=== PATIENT | female | born 1995 | race Two or more races ===

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

== ENCOUNTER 2017-02-24 22:58 | Emergency (ER) | payer OTHER ==
[2017-02-24 23:04] VITALS: BP 127/83
[2017-02-24] MEDS ORDERED: Albuterol/Ipratropium NEB.SOL* Albuterol 2.5 MG/Ipratropium 0.5 MG 3 ML INH ONE (23:36)
[2017-02-24] MEDS ORDERED: Azithromycin TAB* 250 MG PO ONE (23:36)
[2017-02-24] MEDS ORDERED: predniSONE TAB* 20 MG PO ONE (23:36)
[2017-02-25] MEDS ORDERED: Ibuprofen TAB* 600 MG PO ONE (00:06)
--- NOTE | 2017-02-25 06:46 | ED ---
Mireya Rust Kyle, scribed for Marcos Arellano MD on 02/25/17 at 0646 . Shortness of Breath - HPI Summary HPI Summary: This is a 21 yo female with a history of asthma presenting with complaints of shortness of breath that has been ongoing for the past 4 days but reports that the shortness of breath has been problematic for the duration of the summer. She reports that she has not been feeling well with complaints of a sore throat , cough, fevers, shortness of breath, generalized myalgias. She reports that she has been trying her inhaler that she has for her asthma but reports it doesn 't seem to be helping much. - History of Current Complaint Chief Complaint: EDAsthma Time Seen by Provider: 02/24/17 23:28 Hx Obtained From: Patient Onset/Duration: Gradual Onset Timing: Constant Current Severity: Mild Dyspnea At: Exertion Aggrevating Factors: Nothing Alleviating Factors: Nothing Associated Signs & Symptoms: Cough (Nonproductive) - Allergy/Home Medications Allergies/Adverse Reactions: Allergies Allergy/AdvReac Type Severity Reaction Status Date / Time No Known Allergies Allergy Verified 02/24/17 23:01 PMH/Surg Hx/FS Hx/Imm Hx Respiratory History: Reports: Hx Asthma - Cancer History Cancer Type, Location and Year: no cancer Infectious Disease History: No Infectious Disease History: Denies: Traveled Outside the [place] in Last 30 Days - Family History Known Family History: Positive: Hypertension - father Negative: Cardiac Disease, Diabetes - Social History Alcohol Use: None Substance Use Type: Reports: None Smoking Status (MU): Never Smoked Tobacco Review of Systems Positive: Fever, Fatigue. Negative: Chills Positive: Sore Throat, Other - Rhinorrhea Negative: Chest Pain Positive: Shortness Of Breath, Cough Negative: Abdominal Pain, Vomiting Positive: Myalgia Negative: Headache All Other Systems Reviewed And Are Negative: Yes Physical Exam - Summary Physical Exam Summary: General: well-appearing, no pain distress Skin: warm, color reflects adequate perfusion, dry Head: normal Eyes: EOMI, YORDY ENT: Positive rhinorrhea Neck: supple, nontender Respiratory: Occassional scattered wheeze, breath sounds present Cardiovascular: RRR Abdomen: soft, nontender Bowel: present Musculoskeletal: normal, strength/ROM intact Neurological: normal, sensory/motor intact, A&O x3 Psychological: affect/mood appropriate Triage Information Reviewed: Yes Vital Signs On Initial Exam: Initial Vitals Temp Pulse Resp BP Pulse Ox 98.8 F 95 16 127/83 98 02/24/17 23:03 02/24/17 23:03 02/24/17 23:03 02/24/17 23:03 02/24/17 23:03 Vital Signs Reviewed: Yes Diagnostics - Vital Signs Vital Signs Temp Pulse Resp BP Pulse Ox 02/24/17 23:03 98.8 F 95 16 127/83 98 - Laboratory Lab Statement: Any lab studies that have been ordered have been reviewed, and results considered in the medical decision making process. Re-Evaluation - Re-Evaluation First Eval Re-Evaluation Time: 00:30 Change: Improved - Pt reevaluated post breathing treatment/Prednisone with improvement of symptoms. Re-examination of the lungs shows resolution of wheezing. Patient is requested to be discharged at this time as she is feeling improved. Will discharge home. Course/Dx - Course Course Of Treatment: IMPROVED IN ED AFTER NEBULIZER IN ED. FEELS BETTER, WISHES TO GO HOME. RX PREDNISONE AND AZITHRO; PATIENT HAS INHALERS ALREADY. F/ U [facility]. - Diagnoses Provider Diagnoses: Bronchitis with bronchospasm Discharge - Discharge Plan Condition: Stable Disposition: HOME Prescriptions: Azithromycin TAB* [Zithromax TAB (Z-CHIRAG) 250 mg #6 tabs] 250 mg PO DAILY #4 tab predniSONE TAB* [Deltasone TAB*] 40 mg PO DAILY #8 tab Patient Education Materials: Acute Bronchitis (ED), Bronchospasm (ED) [facility] - Additional Instructions: FOLLOW UP WITH [facility]. RETURN TO THE EMERGENCY DEPARTMENT FOR ANY WORSENING OF YOUR CONDITION OR QUESTIONS OR CONCERNS. The documentation as recorded by the Mireya licona Kyle accurately reflects the service I personally performed and the decisions made by me, Marcos Arellano MD.
== END 2017-02-25 00:43 | disposition home or self-care (01) ==
LOC: ED 22:58
DX: J40 Bronchitis, not specified as acute or chronic (principal); R06.02 Shortness of breath; R05 Cough; R53.83 Other fatigue
CPT/HCPCS: 94640; 99282; A9270-GY; J7512